=== PATIENT | male | born 1975 | race Caucasian/White ===

== ENCOUNTER → 2020-09-21 | Outpatient (CLI) | payer OTHER ==
--- NOTE | 2020-09-22 03:10 | MR ---
EXAMINATION TYPE: MR foot RT wo con DATE OF EXAM: 09/21/2020 COMPARISON: None HISTORY: Right foot crushing injury. Multiplanar multiecho imaging of the right foot was performed without contrast. The metatarsals are intact. There is no evidence of a fracture. The toes appear intact. There is diff use soft tissue swelling of the forefoot with subcutaneous edema. The plantar fascia appears intact. The medial and lateral flexor tendons of the foot appear intact. Ankle mortise is anatomic. The colla teral ligaments of the ankle appear intact. There is Achilles calcaneal spurring. IMPRESSION: Subcutaneous edema of the forefoot at the MP joints and also on the lateral aspect of the midfoot. No fracture seen.
== END | disposition home or self-care (01) ==
LOC: RADMRIMAIN 19:44
PROVIDERS: ATTEND Emergency Medicine
DX: S97.81XA Crushing injury of right foot, initial encounter (principal); R60.0 Localized edema

== ENCOUNTER → 2020-10-05 | Outpatient (CLI) | payer OTHER ==
--- NOTE | 2020-10-05 11:38 | XR ---
EXAMINATION TYPE: XR knee complete RT, XR tibia fibula RT, XR ankle complete RT DATE OF EXAM: 10/05/2020 CLINICAL HISTORY: Injury with pain and swelling. TECHNIQUE: Three views of the right ankle and knee are obtained. Two view right leg. COMPARISON: None. FINDINGS: There is no acute fracture/dislocation evident in right knee. Mild to moderate tricompartm ent joint space loss with relative sparing of the lateral tibial femoral compartment. Mild patellofem oral compartment and tibial condylar spurring. Ossification along the distal quadriceps tendon. No acute fracture or dislocation right tibia or fibula. Overlying soft tissues unremarkable. Images of the right ankle show no acute fracture or dislocation. Spurring from the medial malleolus i s present. Superior and inferior calcaneal spurs. Ankle mortise symmetry is maintained. Mild subcutan eous edema posteriorly is seen. IMPRESSION: There is no acute fracture or dislocation in the right knee, leg, or ankle.
== END | disposition home or self-care (01) ==
LOC: RADXRMAIN 10:03
PROVIDERS: ATTEND Emergency Medicine
DX: M25.561 Pain in right knee (principal); M25.571 Pain in right ankle and joints of right foot; M79.661 Pain in right lower leg